=== PATIENT | female | born 1980 | race Caucasian/White ===

== ENCOUNTER 2023-10-17 19:27 | Inpatient (IN) | payer BC ==
[~2023-10-17] VITALS: Ht 167.6 cm; Wt 74.8 kg
[2023-10-17 20:12] LABS: BASOPHILS # (AUTO) 0.1 K/UL (0.0-0.2); BASOPHILS % (AUTO) 1.2 % (0.0-2.0); EOSINOPHILS % (AUTO) 0.6 % (0.0-7.0); HEMATOCRIT 32.8 % (31.2-41.9); HEMOGLOBIN 10.8 g/dL (10.9-14.3); LYMPHOCYTES # (AUTO) 1.3 K/uL (0.8-4.8); MEAN CORPUSCULAR HEMOGLOBIN 29.7 uug (24.7-32.8); MEAN CORPUSCULAR HGB CONC 33 g/dL (32.3-35.6); MEAN CORPUSCULAR VOLUME 90.5 fL (75.5-95.3); MONOCYTES # (AUTO) 0.5 K/uL (0.1-1.30); MONOCYTES % (AUTO) 8.1 % (0.0-11.0); NEUTROPHILS # (AUTO) 4.4 K/uL (1.8-8.9); NEUTROPHILS % (AUTO) 70.1 % (38.5-71.5); PLATELET COUNT (AUTO) 164 K/uL (179-408); RED BLOOD CELL COUNT(AUTO) 3.63 MIL/uL (3.63-4.92); RED CELL DISTRIBUTION WIDTH 14.6 % (12.3-17.7); WHITE BLOOD COUNT (AUTO) 6.3 K/uL (3.8-11.8)
[2023-10-17 20:17] LABS: DIFFERENTIAL COMMENT 1
[2023-10-17 20:23] LABS: CALCIUM 9.1 mg/dL (8.5-10.1); CARBON DIOXIDE 26 mmol/L (21-32); CHLORIDE 95 mmol/L (98-107); CREATININE 0.9 mg/dL (0.6-1.3); GLUCOSE 113 mg/dL (74-106); POTASSIUM 3.5 mmol/L (3.5-5.1); SODIUM SERUM 136 mmol/L (136-145); UREA NITROGEN, BLOOD 9 mg/dL (7-18)
[2023-10-17 20:32] LABS: ALANINE AMINOTRANSFERASE 31 U/L (14-59); ALBUMIN 4.1 g/dL (3.4-5.0); ALKALINE PHOSPHATASE 74 U/L (50-136); ASPARTATE AMINOTRANSFERASE 48 U/L (15-37); BILIRUBIN,DIRECT 0.3 mg/dL (0.0-0.2); BILIRUBIN,TOTAL 0.8 mg/dL (0.2-1.0)
[2023-10-17 20:37] LABS: THYROID STIMULATING HORMONE 5.409 mIU/mL (0.358-3.740)
[2023-10-17 20:49] LABS: ACETAMINOPHEN < 2.0 ug/mL (10-30)
[2023-10-17 20:50] LABS: *BILIRUBIN,URIN NEGATIVE (NEGATIVE); *CLARITY,URINE CLEAR (CLEAR); *COLOR,URINE YELLOW (YELLOW); *KETONES,URINE 1+ (NEGATIVE); *PROTEIN,URINE 2+ (NEGATIVE); LEUKOCYTE ESTERASE ,URINE NEGATIVE (NEGATIVE); NITRITE, URINE NEGATIVE (NEGATIVE); UGLUCOSE NEGATIVE (NEGATIVE)
[2023-10-17 20:54] LABS: *BLOOD, URINE NEGATIVE (NEGATIVE)
[2023-10-17 20:55] LABS: RBC,URINE 0-3 /HPF (0-3); WBC,URINE 0-3 /HPF (0-3)
[2023-10-17 21:22] LABS: ETHANOL 4 MG/DL (0-10)
[2023-10-17 21:32] LABS: AMMONIA < 10 umol/L (11-32)
[2023-10-17 21:45] LABS: *AMPHETAMINE, URINE NEGATIVE (NEGATIVE); *BARBITURATE, URINE NEGATIVE (NEGATIVE); *BENZODIAZEPINE, URINE NEGATIVE (NEGATIVE); *CANNABINOID, URINE NEGATIVE (NEGATIVE); *COCCAINE, URINE NEGATIVE (NEGATIVE); *OPIATE, URINE NEGATIVE (NEGATIVE); *PHENCYCLIDINE SCREEN,URINE NEGATIVE (NEGATIVE)
[2023-10-17 21:49] LABS: FENTANYL, URINE NEGATIVE (NEGATIVE)
[2023-10-17 21:56] LABS: *URINE HCG, QUAL NEGATIVE (NEGATIVE)
[2023-10-17] MEDS ORDERED: MAGNESIUM HYDROXIDE 30 ML LIQUID UDC PO PRN (23:45)
[2023-10-17] MEDS ORDERED: REMEDY ESSENTIAL ZINC PASTE 113 GM TP PRN (23:45)
[2023-10-17] MEDS ORDERED: OXYCODONE/APAP 5-325 MG TABLET PO ONE (23:45)
[2023-10-17] MEDS ORDERED: ACETAMINOPHEN 325 MG TABLET PO PRN (23:45)
[2023-10-17] MEDS ORDERED: ONDANSETRON 4 MG/2 ML VIAL IV PRN (23:45)
[2023-10-17] MEDS ORDERED: OXYCODONE/APAP 5-325 MG TABLET ONE (23:59)
[2023-10-18 02:00] VITALS: BP 113/63; TEMP 98.1
[2023-10-18 05:00] VITALS: BP 115/76; TEMP 97.8; O2SAT 96
[2023-10-18] MEDS ORDERED: PANTOPRAZOLE SODIUM 40 MG TABLET.DR PO SCH (07:00)
[2023-10-18 07:05] LABS: BASOPHILS # (AUTO) 0.1 K/UL (0.0-0.2); BASOPHILS % (AUTO) 1.1 % (0.0-2.0); EOSINOPHILS % (AUTO) 0.5 % (0.0-7.0); HEMATOCRIT 32.2 % (31.2-41.9); HEMOGLOBIN 10.7 g/dL (10.9-14.3); LYMPHOCYTES # (AUTO) 1.8 K/uL (0.8-4.8); LYMPHOCYTES % (AUTO) 24.1 % (20.5-51.5); MEAN CORPUSCULAR HEMOGLOBIN 29.9 uug (24.7-32.8); MEAN CORPUSCULAR HGB CONC 33 g/dL (32.3-35.6); MEAN CORPUSCULAR VOLUME 89.8 fL (75.5-95.3); MONOCYTES # (AUTO) 0.8 K/uL (0.1-1.30); NEUTROPHILS # (AUTO) 4.9 K/uL (1.8-8.9); NEUTROPHILS % (AUTO) 64.3 % (38.5-71.5); PLATELET COUNT (AUTO) 156 K/uL (179-408); RED BLOOD CELL COUNT(AUTO) 3.58 MIL/uL (3.63-4.92); RED CELL DISTRIBUTION WIDTH 14.5 % (12.3-17.7); WHITE BLOOD COUNT (AUTO) 7.6 K/uL (3.8-11.8)
[2023-10-18 07:16] LABS: CALCIUM 8.6 mg/dL (8.5-10.1); CREATININE 0.8 mg/dL (0.6-1.3); DIFFERENTIAL COMMENT 1; MAGNESIUM 1.8 mg/dL (1.8-2.4); PHOSPHOROUS 3.5 mg/dL (2.5-4.9); POTASSIUM 3.8 mmol/L (3.5-5.1)
[2023-10-18 07:30] LABS: THYROID STIMULATING HORMONE 2.042 mIU/mL (0.358-3.740)
[2023-10-18 08:00] VITALS: BP 123/78; TEMP 98.3; O2SAT 99
[2023-10-18] MEDS ORDERED: IOHEXOL 350 100 ML INFUS..BTL ONE (10:55)
[2023-10-18] MEDS ORDERED: SWABABLE VALVE TRANSFER SET EA MC ONE (10:55)
[2023-10-18] MEDS ORDERED: IV NORMAL SALINE 250 ML IV ONE (10:55)
[2023-10-18 12:00] VITALS: BP 122/70; TEMP 98.3; O2SAT 98
[2023-10-18] MEDS ORDERED: ESCI5TAB16 PO (12:39)
[2023-10-18] MEDS ORDERED: MULT-225 PO (12:39)
[2023-10-18] MEDS ORDERED: GABA-532 PO (12:39)
[2023-10-18] MEDS ORDERED: ESCITALOPRAM OXALATE 10 MG TABLET PO SCH (13:42)
[2023-10-18 16:00] VITALS: BP 122/75; TEMP 98.4; O2SAT 98
[2023-10-18] MEDS ORDERED: ATOR40TA PO (16:27)
[2023-10-18] MEDS ORDERED: GABAPENTIN 100 MG CAPSULE PO SCH (17:00)
[2023-10-18] MEDS ORDERED: GABAPENTIN 300 MG CAPSULE PO SCH (17:00)
[2023-10-18] MEDS ORDERED: ATORVASTATIN 40 MG TABLET PO SCH (21:00)
[2023-10-19] MEDS ORDERED: Medication Not On Formulary EA (Escitalopram Oxalate 5 MG) PO SCH (09:00)
[2023-10-19] MEDS ORDERED: Medication Not On Formulary EA (Multivitamins (Multiple Vitamin) 1 EACH) PO SCH (09:00)
[2023-10-19] MEDS ORDERED: MULTIVITAMINS,THERAPEUTIC TABLET PO SCH (09:00)
== END 2023-10-18 17:20 | disposition home or self-care (01) | DRG 605 ==
LOC: ER 19:29 → TELE3 23:55
PROVIDERS: ADMIT Student in an Organized Health Care Education/Training Program; ATTEND Internal Medicine
DX: S00.83XA Contusion of other part of head, initial encounter (principal); W07.XXXA Fall from chair, initial encounter; Y93.89 Activity, other specified; Y92.018 Other place in single-family (private) house as the place of occurrence of the external cause; R56.9 Unspecified convulsions; R53.83 Other fatigue; D64.9 Anemia, unspecified; E78.5 Hyperlipidemia, unspecified; R09.02 Hypoxemia; R79.1 Abnormal coagulation profile; F41.9 Anxiety disorder, unspecified; R41.2 Retrograde amnesia; E66.9 Obesity, unspecified; Z68.26 Body mass index [BMI] 26.0-26.9, adult; F32.A Depression, unspecified; F10.90 Alcohol use, unspecified, uncomplicated
CPT/HCPCS: 36415; 70450; 71045; 71275; 72125; 83550; 83735; 84100; 84443; 84484; 84703; 85025; 85730; 93005; 93307; A4606; A4663; G0378; G0480; Q9967

== ENCOUNTER 2024-07-16 11:37 | Inpatient (IN) | payer BC, OTHER ==
[~2024-07-16] VITALS: Ht 154.9 cm; Wt 59.0 kg
[~2024-07-16 11:37] MED LIST: ATOR40TA PO; ESCI5TAB16 PO; GABA-532 PO; MULT-225 PO
[2024-07-16] MEDS ORDERED: ONDANSETRON 4 MG/2 ML VIAL ONE ×3 (12:43→16:34)
[2024-07-16] MEDS ORDERED: METOCLOPRAMIDE HCL 10 MG/2 ML VIAL ONE (12:44)
[2024-07-16] MEDS ORDERED: KETOROLAC TROMETHAMINE 15 MG INJ ONE (12:48)
[2024-07-16 12:49] LABS: BASOPHILS # (AUTO) 0.1 K/UL (0.0-0.2); BASOPHILS % (AUTO) 1.4 % (0.0-2.0); HEMATOCRIT 40.3 % (31.2-41.9); HEMOGLOBIN 13.2 g/dL (10.9-14.3); LYMPHOCYTES # (AUTO) 0.9 K/uL (0.8-4.8); LYMPHOCYTES % (AUTO) 9.2 % (20.5-51.5); MEAN CORPUSCULAR HEMOGLOBIN 27.3 uug (24.7-32.8); MEAN CORPUSCULAR HGB CONC 33 g/dL (32.3-35.6); MEAN CORPUSCULAR VOLUME 83.4 fL (75.5-95.3); MONOCYTES # (AUTO) 0.3 K/uL (0.1-1.30); MONOCYTES % (AUTO) 3.1 % (0.0-11.0); NEUTROPHILS # (AUTO) 8.6 K/uL (1.8-8.9); NEUTROPHILS % (AUTO) 86.3 % (38.5-71.5); PLATELET COUNT (AUTO) 225 K/uL (179-408); RED BLOOD CELL COUNT(AUTO) 4.83 MIL/uL (3.63-4.92); RED CELL DISTRIBUTION WIDTH 16.3 % (12.3-17.7)
[2024-07-16] MEDS: METOCLOPRAMIDE HCL 10 MG/2 ML VIAL IV ONE (12:52)
[2024-07-16] MEDS: KETOROLAC TROMETHAMINE 15 MG INJ IVP ONE (12:53)
[2024-07-16] MEDS: IV NORMAL SALINE 1000 ML BAG IV ONE (12:53)
[2024-07-16 12:55] LABS: DIFFERENTIAL COMMENT 1
[2024-07-16 12:58] LABS: CALCIUM 9.2 mg/dL (8.5-10.1); CARBON DIOXIDE 21 mmol/L (21-32); CHLORIDE 99 mmol/L (98-107); CREATININE 1.1 mg/dL (0.6-1.3); GLUCOSE 100 mg/dL (74-106); POTASSIUM 3.6 mmol/L (3.5-5.1); SODIUM SERUM 142 mmol/L (136-145); UREA NITROGEN, BLOOD 13 mg/dL (7-18)
[2024-07-16 13:05] LABS: ALANINE AMINOTRANSFERASE 38 U/L (14-59); ALBUMIN 4.6 g/dL (3.4-5.0); ALKALINE PHOSPHATASE 109 U/L (50-136); ASPARTATE AMINOTRANSFERASE 60 U/L (15-37); BILIRUBIN,DIRECT 0.3 mg/dL (0.0-0.2); BILIRUBIN,TOTAL 0.8 mg/dL (0.2-1.0); LIPASE 34 U/L (16-77); TOTAL PROTEIN, SERUM 8.6 g/dL (6.4-8.2)
[2024-07-16 13:08] LABS: PREGNANCY TEST SERUM QUAN < 1 miul/L (0-6)
[2024-07-16] MEDS ORDERED: MORPHINE SULFATE 4 MG/1 ML DISP.SYRIN ONE ×2 (13:18→16:34)
[2024-07-16] MEDS: ONDANSETRON 4 MG/2 ML VIAL IV ONE ×2 (13:25→16:36)
[2024-07-16] MEDS: MORPHINE SULFATE 4 MG/1 ML DISP.SYRIN IV ONE ×2 (13:25→16:37)
[2024-07-16 15:44] LABS: *BILIRUBIN,URIN NEGATIVE (NEGATIVE); *BLOOD, URINE NEGATIVE (NEGATIVE); *CLARITY,URINE CLEAR (CLEAR); *COLOR,URINE YELLOW (YELLOW); *KETONES,URINE 4+ (NEGATIVE); *PROTEIN,URINE 1+ (NEGATIVE); *UROBILINOGEN,URINE 0.2 E.U./dl (NORMAL); LEUKOCYTE ESTERASE ,URINE NEGATIVE (NEGATIVE); NITRITE, URINE NEGATIVE (NEGATIVE); UGLUCOSE NEGATIVE (NEGATIVE)
[2024-07-16 15:45] LABS: *URINE HCG, QUAL NEGATIVE (NEGATIVE)
[2024-07-16 15:50] LABS: BACTERIA,URINE NONE SEEN /HPF (NONE SEEN); RBC,URINE NONE SEEN /HPF (0-3); SQUAMOUS EPITHELIAL CELL,UR FEW /HPF (NONE SEEN); WBC,URINE 0-3 /HPF (0-3)
[2024-07-16] MEDS ORDERED: PHENOBARBITAL SODIUM 130 MG/1 ML DISP.SYRIN ONE (17:37)
[2024-07-16] MEDS: PHENOBARBITAL SODIUM 130 MG/1 ML DISP.SYRIN IV ONE (18:01)
[2024-07-16] MEDS: hydrOXYzine HCL 25 MG TABLET PO ONE (20:20)
[2024-07-16] MEDS ORDERED: hydrOXYzine HCL 25 MG TABLET ONE (20:22)
[2024-07-16] MEDS ORDERED: METOCLOPRAMIDE HCL 10 MG/2 ML VIAL IV PRN (21:30)
[2024-07-16] MEDS ORDERED: ENALAPRILAT DIHYDRATE 1.25 MG/1 ML VIAL IV PRN (21:30)
[2024-07-16] MEDS ORDERED: ACETAMINOPHEN 325 MG TABLET PO PRN (21:30)
[2024-07-16 23:00] VITALS: BP 106/55; TEMP 98.1
[2024-07-16] MEDS ORDERED: IV D5W-0.45% NS +20 KCL 1,000 ML IV ONE (23:51)
[2024-07-16] MEDS: LORAZEPAM 2 MG/1 ML VIAL IV PRN (23:58)
[2024-07-16] MEDS: POTASSIUM CHLORIDE 20 MEQ in IV D5 1/2 NS 1000 ML 1,000 ML IV PRN (23:59)
[2024-07-17 04:00] VITALS: BP 97/67; TEMP 98.3
[2024-07-17] MEDS: PANTOPRAZOLE SODIUM 40 MG TABLET.DR PO SCH (06:34)
[2024-07-17 07:54] LABS: BASOPHILS % (AUTO) 0.7 % (0.0-2.0); EOSINOPHILS % (AUTO) 0.2 % (0.0-7.0); HEMATOCRIT 31.5 % (31.2-41.9); HEMOGLOBIN 10.5 g/dL (10.9-14.3); LYMPHOCYTES # (AUTO) 1.3 K/uL (0.8-4.8); LYMPHOCYTES % (AUTO) 19.3 % (20.5-51.5); MEAN CORPUSCULAR HEMOGLOBIN 27.9 uug (24.7-32.8); MEAN CORPUSCULAR HGB CONC 33 g/dL (32.3-35.6); MEAN CORPUSCULAR VOLUME 83.7 fL (75.5-95.3); MONOCYTES % (AUTO) 14.3 % (0.0-11.0); NEUTROPHILS # (AUTO) 4.5 K/uL (1.8-8.9); NEUTROPHILS % (AUTO) 65.5 % (38.5-71.5); PLATELET COUNT (AUTO) 155 K/uL (179-408); RED BLOOD CELL COUNT(AUTO) 3.77 MIL/uL (3.63-4.92); RED CELL DISTRIBUTION WIDTH 16.4 % (12.3-17.7); WHITE BLOOD COUNT (AUTO) 6.8 K/uL (3.8-11.8)
[2024-07-17 08:04] LABS: ALBUMIN 3.4 g/dL (3.4-5.0); BILIRUBIN,TOTAL 0.9 mg/dL (0.2-1.0); CALCIUM 7.7 mg/dL (8.5-10.1); MAGNESIUM 1.6 mg/dL (1.8-2.4); PHOSPHOROUS 2.3 mg/dL (2.5-4.9); POTASSIUM 3.7 mmol/L (3.5-5.1); TOTAL PROTEIN, SERUM 6.7 g/dL (6.4-8.2)
[2024-07-17 08:07] LABS: DIFFERENTIAL COMMENT 1
[2024-07-17] MEDS: FOLIC ACID 1 MG TABLET PO SCH (09:11)
[2024-07-17] MEDS: THIAMINE HCL 100 MG TABLET PO SCH (09:11)
[2024-07-17] MEDS ORDERED: HYDR25CA PO (09:26)
[2024-07-17] MEDS ORDERED: MOUNJARO SQ (09:26)
[2024-07-17] MEDS ORDERED: ESCI10TA PO (09:26)
[2024-07-17] MEDS ORDERED: GABA600T12 PO (09:29)
[2024-07-17] MEDS ORDERED: LORAZEPAM 2 MG/1 ML VIAL IV PRN (09:45)
[2024-07-17 12:00] VITALS: BP 84/41; TEMP 98.4; O2SAT 100
[2024-07-17] MEDS: MAGNESIUM OXIDE 400 MG TABLET PO ONE (12:14)
[2024-07-17 13:08] VITALS: BP 107/69; O2SAT 96
[2024-07-17] MEDS: LORAZEPAM 1 MG TABLET PO PRN (14:15)
[2024-07-17] MEDS: NEUTRA PHOS PACKET PO ONE (15:28)
[2024-07-17 16:08] VITALS: BP 109/73; TEMP 98.5
[2024-07-18 07:25] LABS: CREATININE 0.9 mg/dL (0.6-1.3); MAGNESIUM 1.7 mg/dL (1.8-2.4); PHOSPHOROUS 1.6 mg/dL (2.5-4.9); POTASSIUM 3.6 mmol/L (3.5-5.1)
[2024-07-18] MEDS ORDERED: HYDROXYZINE PAMOATE 25 MG CAPSULE PO PRN (08:30)
[2024-07-18] MEDS: MULTIVITAMINS,THERAPEUTIC TABLET PO SCH (08:34)
[2024-07-18] MEDS ORDERED: GABAPENTIN 300 MG CAPSULE PO SCH (09:00)
[2024-07-18] MEDS ORDERED: ESCITALOPRAM OXALATE 10 MG TABLET PO SCH (09:00)
[2024-07-18] MEDS ORDERED: MAGNESIUM OXIDE 400 MG TABLET PO ONE (10:00)
== END 2024-07-18 09:00 | disposition home or self-care (01) | DRG 378 ==
LOC: ER 11:37 → MERGE 22:17 → TELE3 22:17 → MEDSURG3 07-17 06:39
PROVIDERS: ADMIT Internal Medicine; ATTEND Internal Medicine
DX: K29.21 Alcoholic gastritis with bleeding (principal); E87.20 Acidosis, unspecified; F32.A Depression, unspecified; K76.0 Fatty (change of) liver, not elsewhere classified; F41.9 Anxiety disorder, unspecified; R00.0 Tachycardia, unspecified; R82.4 Acetonuria; F10.10 Alcohol abuse, uncomplicated
CPT/HCPCS: 36415; 71045; 76856; 83690; 83735; 84100; 84484; 84703; 85025; 85730; 93005; A4606; G0378; J1885; J2060; J2270; J2405; J2560; J2765; J3480; J7040